=== PATIENT | female | born 1990 | race Caucasian/White ===

== ENCOUNTER 2021-03-25 10:16 | Emergency (ER) | payer OTHER ==
[~2021-03-25] VITALS: Ht 160 cm; Wt 77.5 kg
--- NOTE | 2021-03-25 10:49 | PHYS DOC ---
Past History Additional Past Medical Histor: THYROID CANCER (MAIRA BOUDREAUX APRN) Past Surgical History: No Surgical History (MAIRA BOUDREAUX APRN) Smoking: Non-smoker Alcohol Use: None Drug Use: None (MAIRA BOUDREAUX APRN) General Adult EDM: Chief Complaint: SHORTNESS OF BREATH HPI: HPI: Patient is a 30-year-old female who presents today with increased shortness of breath. Patient states that her entire family has been positive for COVID since late last week, she said she took a home test today which showed her to be positive for COVID she has had increased difficulty breathing over the last 24 to 48 hours. She does state that she has been referred to a health promotion coordinator for evaluation of possible asthma she has not gotten an appointment yet with pulmonary, she does state that she has thyroid cancer and she is supposed to have surgery next week which has now been put on hold until she is over this COVID. Patient has had her Moderna vaccines x2 her last dose being in September 2020. (MAIRA BOUDREAUX APRN) Review of Systems: Review of Systems: Constitutional: Denies fever or chills Eyes: Denies change in visual acuity HENT: Denies nasal congestion or sore throat Respiratory: Shortness of air Cardiovascular: Denies chest pain or edema GI: Denies abdominal pain, nausea, vomiting, bloody stools or diarrhea : Denies dysuria Musculoskeletal: Denies back pain or joint pain Integument: Denies rash Neurologic: Denies headache, focal weakness or sensory changes Endocrine: Denies polyuria or polydipsia Lymphatic: Denies swollen glands Psychiatric: Denies depression or anxiety (MAIRA BOUDREAUX APRN) Current Medications: Current Meds: Home medication included Amoxil which she started on Wednesday Current Medications Medications (Trade) Dose Ordered Sig/Heriberto Start Time Stop Time Status Last Admin Dose Admin Dexamethasone Sodium Phosphate (Decadron) 10 mg 1X ONCE 03/25/21 10:45 03/25/21 10:46 UNV (MAIRA BOUDREAUX APRN) Allergies: Allergies: Allergies Coded Allergies Type Severity Reaction Last Updated Verified Sulfa (Sulfonamide Antibiotics) Allergy Unknown 03/25/21 Yes latex Allergy Unknown 03/25/21 Yes (MAIRA BOUDREAUX APRN) Physical Exam: PE: Constitutional: Well developed, well nourished, MILD distress, non-toxic appearance. [] HENT: Normocephalic, atraumatic, bilateral external ears normal, oropharynx moist, no oral exudates, nose normal. [] Eyes: PERRLA, EOMI, conjunctiva normal, no discharge. [] Neck: Normal range of motion, no tenderness, supple, no stridor. [] Cardiovascular:Heart rate regular rhythm, no murmur [] Lungs & Thorax: Bilateral breath sounds clear to auscultatioN, NO ACCESSORY MUSCLE USE NOTED, NO INCREASE WORK OF BREATHING NOTED. DRY COUGH NOTED Abdomen: Bowel sounds normal, soft, no tenderness, no masses, no pulsatile masses. [] Skin: Warm, dry, no erythema, no rash. [] Back: No tenderness, no CVA tenderness. [] Extremities: No tenderness, no cyanosis, no clubbing, ROM intact, no edema. [] Neurologic: Alert and oriented X 3, normal motor function, normal sensory fun ction, no focal deficits noted. [] Psychologic: Affect normal, judgement normal, mood normal. [] (MAIRA BOUDREAUX APRN) Current Patient Data: Vital Signs: Vital Signs Date Time Temp Pulse Resp B/P (MAP) Pulse Ox O2 Delivery O2 Flow Rate FiO2 03/25/21 11:05 92 20 131/83 (99) 98 Room Air 03/25/21 10:20 99.1 94 20 141/78 (99) 97 Room Air (MAIRA BOUDREAUX APRN) EKG: EKG: [] (MAIRA BOUDREAUX APRN) Radiology/Procedures: Radiology/Procedures: [REASON: COUGH, COVID + PROCEDURE: CHEST AP ONLY XR CHEST 1V History: Reason: COUGH, COVID + / Spl. Instructions: / History: Comparison: None. Findings: Subtle ill-defined bibasilar opacities. No pleural effusion. No pneumothorax. Normal heart size. Impression: 1. Subtle ill-defined bibasilar opacities, may relate to atelectasis or infiltrates including viral pneumonia. Electronically signed by: Zhou Nguyen DO (03/25/2021 11:16 AM) [id number] ] (MAIRA BOUDREAUX APRN) Heart Score: C/O Chest Pain: N/A Risk Factors: Risk Factors: DM, Current or recent (<one month) smoker, HTN, HLP, family history of CAD, obesity. Risk Scores: Score 0 - 3: 2.5% MACE over next 6 weeks - Discharge Home Score 4 - 6: 20.3% MACE over next 6 weeks - Admit for Clinical Observation Score 7 - 10: 72.7% MACE over next 6 weeks - Early Invasive Strategies (MAIRA BOUDREAUX APRN) Course & Med Decision Making: Course & Med Decision Making Pertinent Labs and Imaging studies reviewed. (See chart for details) 1140 reviewed radiological results with patient and also how she feels after her inhaler and steroid she states she still continues to cough but does state her shortness of breath is better. Did inform patient that the cough can last even weeks after her 10 days of quarantine, patient did state that she was placed on amoxicillin on Wednesday by her primary care physician, did encourage her to continue that medication, also informed her to use the albuterol inhaler every 4 hours as needed for shortness of air with spacer which was provided by respiratory therapy. Patient can also treat symptoms this is a decongestant cough suppressant or Tylenol and ibuprofen as needed for body aches and pains. Patient verbalized understanding of discharge instructions agreeable to the plan of care going home. (MAIRA BOUDREAUX APRN) Course & Med Decision Making I was the Attending physician on the above date of service of this patient. This patient was evaluated, examined, treated, and dispositioned from the emergency department by the mid-level practitioner. I reviewed history, physical exam findings and plan of care with midlevel practitioner and agreed to provided care Electronically signed, Madhu Stokes DO (MADHU STOKES DO) Refugio Disclaimer: Refugio Disclaimer: This electronic medical record was generated, in whole or in part, using a voice recognition dictation system. (MAIRA BOUDREAUX APRN) Departure Departure: Impression: Primary Impression: COVID-19 Additional Impression: Viral pneumonia, unspecified Disposition: HOME / SELF CARE / HOMELESS Condition: STABLE Referrals: TIFFANI DOZIER MD (PCP) Additional Instructions: Albuterol inhaler 2 puffs every 4 hours as needed for shortness of air, use spacer that was provided. Tylenol and/or ibuprofen as needed for pain or fever as label directed [id number] medications for symptoms such as cough, or nasal decongestant Continue amoxicillin that was provided by your primary care physician on Wednesday Quarantine 10 days from the first day of symptoms. Return instructions are provided at the end of the following COVID instructions. You have been tested for or diagnosed with COVID-19. It is an infection caused by a new type of coronavirus. COVID-19 will cause cold-like or mild flu symptoms in most. It can cause more severe symptoms like problems breathing in some. There is no treatment for COVID-19. The body will clear the infection over time. Self-care will help to ease discomfort. Steps to Take: Self-Care Rest as needed. Healthy habits may help you feel better. Steps include: Choose healthy foods including fruits and vegetables. Drink water throughout the day. Get plenty of sleep each night. If you smoke, try to quit. It may ease breathing. Avoid alcohol. Keep Others Healthy The virus can spread to others. Droplets are released every time you sneeze or cough. The droplets can get into the mouth, nose, or eyes of people near you and lead to infection. To lower the chances of spreading COVID-19 to others: Stay at home until your doctor has said it is safe to leave. If you tested positive this will mean staying isolated until both of the following are true: At least 10 days have passed since the start of illness. You are free of fever for at least 72 hours without the use of medicine. During this time: - Avoid public areas, events, or transportation. Do not return to work or [facility] until your doctor has said it is safe to do so. - Call ahead if you need to go to a medical center. Let them know you may have COVID-19. It will help them guide you where to go. They may also ask you to wear a facemask when you come to the office. - If you call for emergency medical services, let them know you may have COVID- 19. While at home: - Try to avoid close contact with others. Stay about 6 feet away. - If possible, spend most of your time in a separate room from others. - Use a face mask if you will be in close contact with others such as sharing a room or vehicle. - Have someone wipe down common surfaces in the home. Use household milk pickup driver every day on areas like doorknobs, counters, or sinks. - Cough or sneeze into a tissue. Throw the tissue away right after use. If a tissue is not available, cough or sneeze into your elbow. - Wash your hands often. Wash them after sneezing or coughing. Use soap and water and wash for at least 20 seconds. Alcohol based hand washroom cleaner can be used if soap and water is not available. - Do not prepare food for others. Avoid sharing personal items like forks, spoons, or toothbrushes. - Avoid close contact with pets while you are sick. There is no evidence of the virus passing to pets. This is a safety step until more is known about this virus. Isolation can be frustrating. Social interaction can help. Keep in touch with friends and family through phone and tech options. You can still interact with others in your home, just keep a safe distance of about 6 feet. Follow-up: Your doctors office will check in with you to see if there are any changes in your health. You may be asked to keep track of symptoms to share with them. They will also let you know when you are clear to be in public again. Problems to Look Out For: Contact your doctor if your recovery is not going as you expect. Get emergency care if you have problems such as: - Trouble breathing - Nonstop chest pain or pressure - Changes in awareness, confusion, or problems waking - Lips or face have bluish color - Worsening of symptoms If you think you have an emergency, call for emergency medical services right away. As taken from [facility] MAIRA BOUDREAUX APRN Mar 25, 2021 10:49 MADHU STOKES DO Mar 27, 2021 07:20
[2021-03-25] MEDS ORDERED: ALBUTEROL SULFATE 8GM INHALER. INH ONE (11:00)
[2021-03-25] MEDS ORDERED: DEXAMETHASONE 4 MG TABLET PO ONE (11:00)
--- NOTE | 2021-03-25 11:18 | RAD ---
XR CHEST 1V History: Reason: COUGH, COVID + / Spl. Instructions: / History: Comparison: None. Findings: Subtle ill-defined bibasilar opacities. No pleural effusion. No pneumothorax. Normal heart size. Impression: 1. Subtle ill-defined bibasilar opacities, may relate to atelectasis or infiltrates including viral pneumonia. Electronically signed by: Zhou Nguyen DO (03/25/2021 11:16 AM) [id number]
[2021-03-25 11:56] VITALS: BP 126/81
== END 2021-03-25 11:58 | disposition home or self-care (01) ==
LOC: ER 10:16
DX: U07.1 COVID-19 (principal); J12.82 Pneumonia due to coronavirus disease 2019; Z88.2 Allergy status to sulfonamides; Z91.040 Latex allergy status
CPT/HCPCS: 71045; 99283; J8540